=== PATIENT | female | born 1945 | race Caucasian/White ===

== ENCOUNTER 2019-08-26 06:48 | Day surgery (SDC) | payer MEDICARE ==
[~2019-08-26] VITALS: Ht 165.1 cm; Wt 69.7 kg
[2019-08-26] MEDS ORDERED: TRAZ-251 PO (07:40)
[2019-08-26] MEDS ORDERED: ACYC200C PO (07:40)
[2019-08-26] MEDS ORDERED: FLUT1AER IH (07:40)
[2019-08-26] MEDS ORDERED: ALBU8.5H8 INH (07:40)
[2019-08-26] MEDS ORDERED: SERT50TA10 PO (07:40)
[2019-08-26] MEDS ORDERED: DONE5TAB7 PO (07:40)
[2019-08-26] MEDS ORDERED: SIMV20TA PO (07:40)
[2019-08-26] MEDS ORDERED: LOSA1TAB39 PO (07:40)
--- NOTE | 2019-08-26 09:15 | NUR ---
ULTRASOUND DONE BY Aislinn WATSON, NO FINDINGS OF FLUID. NO THORACENTESIS DONE. PATIENT TO BE DISCHARGED HOME. NO DISTRESS NOTED.
== END 2019-08-26 09:10 | disposition home or self-care (01) ==
LOC: SSTAY O 06:48
PROVIDERS: ATTEND Radiology Vascular & Interventional Radiology
DX: J90 Pleural effusion, not elsewhere classified (principal); I10 Essential (primary) hypertension; E78.5 Hyperlipidemia, unspecified; M19.90 Unspecified osteoarthritis, unspecified site; Z90.710 Acquired absence of both cervix and uterus; Z87.891 Personal history of nicotine dependence; Z90.13 Acquired absence of bilateral breasts and nipples; Z85.118 Personal history of other malignant neoplasm of bronchus and lung; Z85.3 Personal history of malignant neoplasm of breast; Z79.899 Other long term (current) drug therapy
CPT/HCPCS: 76604